=== PATIENT | female | born 1965 | race African-American/Black ===

== ENCOUNTER 2019-04-28 11:40 | Outpatient (CLI) | payer MEDICARE, MEDICAID ==
--- NOTE | 2019-04-28 14:13 | Ultrasound Report ---
Reason: HIGH VENOUS PRESSURES ON DIALYSIS Procedure Date: 04/28/2019 Accession Number: [id number] / [id number] Procedure: US - Duplex Upr Ext Arterial LT CPT Code: Final Report FULL RESULT: EXAM: LEFT ARM FISTULA ULTRASOUND. EXAM DATE: 04/28/2019 01:14 PM. CLINICAL HISTORY: High venous pressures on dialysis. COMPARISON: None. TECHNIQUE: Real-time sonographic vascular imaging was performed by the machine sneller, utilizing color-flow, Doppler flow, and spectral analysis. Multiple installation service representative static images were saved for review. 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 There is good palpable thrill at the arterial inflow side and cannulation zone aneurysma readily collapse with gentle pressure. Anatomically radiocephalic fistula with good arterial inflow with preserved spectral waveform in the presumed radial artery. Flow volume of the fistula is approximately 1500 mL/min, adequate. The fistula demonstrates low resistance arterialized waveforms on spectral Doppler throughout and is patent throughout with color Doppler. No thrombus is detected within the aneurysms. The venous outflow is via the cephalic vein which is patent to the level of the subclavian vein. Peak systolic velocity of 436 cm/s near the arterial anastomosis is noted with an inflow velocity of the radial artery of 178 cm/s. While this can be seen with stenosis, overall flow volume of the fistula is high, no indication for arterial side intervention. IMPRESSION: Excellent flow volumes with patent venous outflow to the subclavian vein. While the physical examination is not overtly suggestive of distal venous outflow stenosis, if venous pressures on dialysis remain high, recommend fistulogram potentially with intervention to exclude potential for central venous stenosis. [facility]
== END 2019-04-28 11:41 | disposition home or self-care (01) ==
LOC: DI 11:40
PROVIDERS: ATTEND Internal Medicine Nephrology
DX: T82.898A Other specified complication of vascular prosthetic devices, implants and grafts, initial encounter (principal)

== ENCOUNTER 2020-03-12 15:29 | Outpatient (CLI) | payer MEDICARE, MEDICAID | END 2020-03-12 15:30 | disposition home or self-care (01) | LOC: COV 15:29 | PROVIDERS: ATTEND Family Medicine | DX: R05 Cough (principal); Z20.828 Contact with and (suspected) exposure to other viral communicable diseases ==

== ENCOUNTER 2020-03-16 07:00 | Outpatient (CLI) | payer MEDICARE, MEDICAID | END 2020-03-16 23:59 | disposition home or self-care (01) | LOC: LAB.R 07:00 | PROVIDERS: ATTEND Physician Assistant Medical | DX: J40 Bronchitis, not specified as acute or chronic (principal); Z20.828 Contact with and (suspected) exposure to other viral communicable diseases ==

== ENCOUNTER 2020-03-16 10:03 | Outpatient (CLI) | payer MEDICARE, MEDICAID ==
--- NOTE | 2020-03-16 10:27 | XRAY Report ---
PROCEDURE: Chest 2 View X-Ray INDICATIONS: BRONCHITIS TECHNIQUE: 2 view(s) of the chest. COMPARISON: None. FINDINGS: Surgical changes and devices: None. Lungs and pleura: No pleural effusions or pneumothorax. Increased interstitial markings in both lung s. Mediastinum: Mediastinal contours are normal. Cardiomegaly. Bones and chest wall: No suspicious bony abnormalities. Soft tissues appear unremarkable. IMPRESSION: Cardiomegaly with mildly increased interstitial markings. This could represent cardiogen ic pulmonary edema although viral bronchitis would cause a similar appearance. Correlate with BNP and infection markers. Reviewed by: Aman Delacruz MD on 03/16/2020 9:25 AM [facility] Approved by: Aman Delacruz MD on 03/16/2020 9:25 AM [facility] Station ID: [id number]
== END 2020-03-16 23:59 | disposition home or self-care (01) ==
LOC: DI.N 10:03
PROVIDERS: ATTEND Physician Assistant Medical
DX: J40 Bronchitis, not specified as acute or chronic (principal)

== ENCOUNTER 2020-05-10 07:51 | Outpatient (CLI) | payer MEDICARE, MEDICAID ==
--- NOTE | 2020-05-10 10:15 | Ultrasound Report ---
PROCEDURE: Abdomen Limited INDICATIONS: RUQ ABD PAIN TECHNIQUE: Real-time focused scanning was performed of the abdomen, with image documentation. COMPARISON: None FINDINGS: The liver is enlarged measuring approximately 22 cm in greatest transverse dimension. There is increa sed conspicuity of the portal triads throughout the liver. Hepatic parenchymal echogenicity is normal . Parenchymal echotexture is mildly coarsened. No hepatic mass identified. No intrahepatic or extrahepatic biliary ductal dilatation. The common duct measures 3-5 mm at the por ta hepatis. Normally distended gallbladder with no pericholecystic fluid, wall thickening, sludge, or gallstone. Visualized proximal portions of the pancreas are normal. There are a few simple cysts in the right kidney, largest measuring 2 cm. Otherwise normal appearance of the right kidney. IMPRESSION: Mild hepatomegaly with coarsened hepatic echotexture and increased conspicuity of the portal triads. In the appropriate clinical setting these findings represent viral hepatitis or other diffuse hepatoc ellular process. Reviewed by: Aman Delacruz MD on 05/10/2020 9:14 AM [facility] Approved by: Aman Delacruz MD on 05/10/2020 9:14 AM [facility] Station ID: [id number]
== END 2020-05-10 07:52 | disposition home or self-care (01) ==
LOC: DI 07:51
PROVIDERS: ATTEND Nurse Practitioner Family
DX: R10.11 Right upper quadrant pain (principal); R16.0 Hepatomegaly, not elsewhere classified

== ENCOUNTER 2020-05-16 08:00 | Outpatient (CLI) | payer MEDICARE, MEDICAID ==
[2020-05-16 18:49] LABS: ALBUMIN 3.8 g/dL (3.2-5.5); BILIRUBIN,DIRECT 0.1 mg/dL (0.1-0.5); BILIRUBIN,TOTAL 0.8 mg/dL (0.2-1.0); TOTAL PROTEIN 6.8 g/dL (6.7-8.2)
[2020-05-17 12:38] LABS: HEPATITIS C ANTIBODY NON-REACTIVE (NON-REACTIVE)
[2020-05-17 12:40] LABS: HEPATITIS B SURFACE ANTIGEN NON-REACTIVE (NON-REACTIVE)
== END 2020-05-16 23:59 | disposition home or self-care (01) ==
LOC: LAB.WCP 08:00
PROVIDERS: ATTEND Nurse Practitioner Family
DX: R16.0 Hepatomegaly, not elsewhere classified (principal); R10.11 Right upper quadrant pain
CPT/HCPCS: 36415; 80076; 86317; 86704; 86709; 86803; 87340

== ENCOUNTER 2020-09-04 08:00 | Outpatient (CLI) | payer MEDICARE, MEDICAID ==
--- NOTE | 2020-09-04 18:57 | XRAY Report ---
PROCEDURE: Chest 2 View X-Ray INDICATIONS: SOB TECHNIQUE: 2 view(s) of the chest. COMPARISON: None. FINDINGS: Surgical changes and devices: None. Lungs and pleura: No pleural effusions or pneumothorax. Pulmonary venous congestion without reema pu lmonary edema. Mediastinum: Mediastinal contours are normal. Calcified right paratracheal lymph node suggests chron ic granulomatous disease. At least moderate cardiomegaly, as before. Bones and chest wall: No suspicious bony abnormalities. Soft tissues appear unremarkable. IMPRESSION: At least moderate cardiomegaly with pulmonary venous congestion. Reviewed by: Ramón Monroe MD on 09/04/2020 6:55 PM PDT Approved by: Ramón Monroe MD on 09/04/2020 6:55 PM PDT Station ID: [id number]
== END 2020-09-04 23:59 | disposition home or self-care (01) ==
LOC: DI.N 08:00
PROVIDERS: ATTEND Family Medicine
DX: I51.7 Cardiomegaly (principal); R09.89 Other specified symptoms and signs involving the circulatory and respiratory systems

== ENCOUNTER 2020-09-05 11:45 | Outpatient (CLI) | payer MEDICARE, MEDICAID ==
[2020-09-05 18:20] LABS: BASOPHILS # (AUTO) 0.1 10^3/uL (0.0-0.1); EOSINOPHILS # (AUTO) 0.1 10^3/uL (0.0-0.7); EOSINOPHILS % (AUTO) 1.8 %; HGB - HEMOGLOBIN 10.1 g/dL (12.0-16.0); LYMPHOCYTES % (AUTO) 20.9 %; MEAN CORPUSCULAR HEMOGLOBIN 27.8 pg (27.0-31.0); MEAN CORPUSCULAR HGB CONC 31.6 g/dL (32.0-36.0); MEAN CORPUSCULAR VOLUME 88.2 fL (81.0-99.0); MONOCYTES # (AUTO) 0.6 10^3/uL (0.0-1.0); MONOCYTES % (AUTO) 11.9 %; NEUTROPHILS # (AUTO) 3.1 10^3/uL (1.5-6.6); NEUTROPHILS % (AUTO) 63.8 %; PLT - PLATELET COUNT 159 10^3/uL (130-450); RED BLOOD COUNT 3.63 10^6/uL (4.20-5.40); WHITE BLOOD COUNT 4.9 x10^3/uL (4.8-10.8)
[2020-09-05 18:31] LABS: ALBUMIN 3.7 g/dL (3.2-5.5); ALBUMIN/GLOBULIN RATIO 1.3 (1.0-2.2); BILIRUBIN,TOTAL 0.8 mg/dL (0.2-1.0); CALCIUM 10.3 mg/dL (8.5-10.3); POTASSIUM 4.2 mmol/L (3.5-5.0); TOTAL PROTEIN 6.5 g/dL (6.7-8.2)
[2020-09-05 18:41] LABS: CREATININE 11.6 mg/dL (0.4-1.0)
== END 2020-09-05 11:46 | disposition home or self-care (01) ==
LOC: LAB.N 11:45
PROVIDERS: ATTEND Family Medicine
DX: R06.09 Other forms of dyspnea (principal); R06.02 Shortness of breath
CPT/HCPCS: 36415; 80053; 83880; 85025

== ENCOUNTER 2020-09-06 07:35 | Outpatient (CLI) | payer MEDICARE, MEDICAID ==
[2020-09-06] MEDS ORDERED: IOVERSOL 320 100 ML VIAL IVP ONE ×2 (07:38→07:40)
--- NOTE | 2020-09-06 10:27 | Ultrasound Report ---
PROCEDURE: Retroperitoneal INDICATIONS: RENAL LESION TECHNIQUE: Real-time scanning was performed of the retroperitoneal organs, with image documentation. COMPARISON: None. FINDINGS: Kidneys: Kidneys are normal in size. Right kidney measures 7.7 cm long; left kidney measures 8.4 cm long. Right renal cortical thickness is 0.65 cm; left renal cortical thickness is 0.74 cm. The right kidney has multiple cysts, the largest 2 measuring 2.3 x 2.0 x 1.5 cm in the inferior pole and 1.8 x 1.5 x 1.5 cm in the midpole. The left kidney has a solid vascular mass measuring 7.9 x 7.4 x 6.3 cm in the midpole. The left kidne y also has a cyst in the superior pole measuring 3.5 x 3.1 x 2.6 cm. IMPRESSION: 1. Solid mass in the left renal midpole highly suspicious for renal cell carcinoma. CT will be perfo rmed following this exam and will be dictated separately. 2. Multiple bilateral renal cysts. Reviewed by: Abhay Brady on 09/06/2020 10:25 AM PDT Approved by: Abhay Brady on 09/06/2020 10:25 AM PDT Station ID: [id number]
== END 2020-09-06 07:36 | disposition home or self-care (01) ==
LOC: DI 07:35
PROVIDERS: ATTEND Urology
DX: N28.89 Other specified disorders of kidney and ureter (principal); N28.1 Cyst of kidney, acquired

== ENCOUNTER 2020-09-06 09:22 | Emergency (ER) | payer MEDICARE, MEDICAID ==
--- NOTE | 2020-09-06 10:25 | ED Physician Documentation ---
PD HPI DYSPNEA - Stated complaint Stated Complaint: F/U BLOOD WORK - Chief complaint Chief Complaint: General - History obtained from History obtained from: Patient - History of Present Illness Timing - onset: How many weeks ago (1-2) Timing - onset during: Light activity Timing - duration: Weeks (1-2) Timing - details: Gradual onset, Waxing and waning (she has had some cough for couple weeks, dry/nonproductive. No wheezing. No noted leg swelling nor orthopnea. Gets dialysis M/W/F and she has talked with her director personal, and he plans to dialyze to lower dry weight starting tomorrow. Seen at [facility] yesterday to get labs done per Urologist order.) Inciting event(s): No: URI (no noted fevers, productive cough, edema.) Improved by: Rest Worsened by: Exertion, Coughing. No: Laying flat Associated symptoms: Cough, Bilateral edema. No: Fever, Hemoptysis, Wheezing, Palpitations Similar symptoms before: No diagnosis (some cough and dyspnea at times in the past. She states she had CHF mentioned in the past but no particular diagnosis.) Recently seen: Clinic ([facility] yesterday to get Chemistry tests done in prep for getting CT kidney done today (she states gets CT every 6 months to follow kidney tumor size). Also seen by provider at [facility] and added labs. Rx of Losartan for BP. Concern for heart failure. Lab results today and provider said to go to ER.), Other (was to get outpt CT kidney today but IV could not be started by DI/Anesthesia/nor ER nursing.) Review of Systems Constitutional: denies: Fever, Chills, Myalgias Nose: denies: Rhinorrhea / runny nose, Congestion Throat: denies: Sore throat Cardiac: denies: Chest pain / pressure, Palpitations, Pedal edema Respiratory: reports: Dyspnea, Cough. denies: Wheezing GI: denies: Abdominal Pain, Diarrhea, Bloody / black stool : reports: Other (she does not produce urine; dialysis patient with anuric renal failure.) Skin: denies: Rash, Lesions Musculoskeletal: denies: Extremity swelling Neurologic: denies: Generalized weakness, Near syncope PD PAST MEDICAL HISTORY - Past Medical History Cardiovascular: Hypertension Respiratory: None Neuro: None Endocrine/Autoimmune: Type 2 diabetes GI: None : Dialysis HEENT: None Psych: None - Present Medications Home Medications: Ambulatory Orders Medication Instructions Recorded Confirmed Acetaminophen [Aphen] 650 mg PO Q4HR PRN 09/06/20 09/06/20 Amlodipine Besylate [Norvasc] 10 mg PO DAILY 09/06/20 09/06/20 Ergocalciferol [Vitamin D2] 50,000 unit PO 09/06/20 Ferric Citrate [Auryxia] 630 mg PO TID 09/06/20 09/06/20 Losartan Potassium 25 mg PO DAILY 09/06/20 09/06/20 Non Formulary 1 tab PO DAILY 09/06/20 09/06/20 Sevelamer [Renagel] 2,400 mg PO TID 09/06/20 09/06/20 rOPINIRole [Requip] 0.25 mg PO BID 09/06/20 09/06/20 - Allergies Allergies/Adverse Reactions: Allergies Allergy/AdvReac Type Severity Reaction Status Date / Time No Known Drug Allergies Allergy Verified 09/06/20 09:31 PD ED PE NORMAL - Vitals Vital signs reviewed: Yes - General General: Alert and oriented X 3, No acute distress, Well developed/nourished - HEENT HEENT: Pharynx benign - Neck Neck: Supple, no meningeal sign, No adenopathy - Cardiac Cardiac: RRR, No murmur - Respiratory Respiratory: No respiratory distress, Clear bilaterally - Abdomen Abdomen: Soft, Non tender - Back Back: No CVA TTP - Derm Derm: Normal color, Warm and dry - Extremities Extremities: Normal ROM s pain, No edema, No calf tenderness / cord, Other (fistula dialysis noted left forearm with palpable thrill. ) - Neuro Neuro: Alert and oriented X 3, No motor deficit, Normal speech Results - Vitals Vitals: Vital Signs - 24 hr 09/06/20 09/06/20 09/06/20 09:28 11:31 13:00 Temperature 36.7 C 36.9 C 36.8 C Heart Rate 131 H 78 79 Respiratory 22 24 14 Rate Blood Pressure 154/111 H 152/94 H 154/93 H O2 Saturation 98 97 95 09/06/20 13:45 Temperature 36.8 C Heart Rate 75 Respiratory 16 Rate Blood Pressure 148/90 H O2 Saturation 99 Oxygen O2 Source Room air - EKG (time done) 09:44 Rate: Rate (enter#) (84) Rhythm: NSR [place]: Normal Intervals: Normal [place] QRS: Normal Ischemia: Normal ST segments. No: ST elevation c/w ischemia, ST depression - Labs Labs: Laboratory Tests 09/06/20 10:26 WBC 5.3 RBC 3.75 L Hgb 10.5 L Hct 32.8 L MCV 87.5 MCH 28.0 MCHC 32.0 RDW 14.6 Plt Count 136 MPV 11.2 H Neut # (Auto) 3.8 Lymph # (Auto) 0.9 L [place] # (Auto) 0.5 Eos # (Auto) 0.1 Baso # (Auto) 0.0 Absolute Nucleated RBC 0.00 Nucleated RBC % 0.0 - Rads (name of study) chest xray Radiology: Prelim report reviewed, See rad report (stable cardiomegaly; no infiltrates. ) ECHO Radiology: Prelim report reviewed (EF 40-45%, mild aortic stenosis. LV enlargement. Normal wall thickness. ), See rad report PD MEDICAL DECISION MAKING - ED course Complexity details: reviewed results (did not really need to repeat labs from just yesterday. ), re-evaluated patient (Clinically does not have edema, fine crackles, orthopnea. Does not clinically seem like CHF per se. Can assess with ECHO and CXR.), considered differential (labs from yesterday showed elevated Cr, which is of course expected being a dialysis patient, and elevated BNP, which also would be expected in dialysis, and no prior ones for comparison. Most useful to help clarify hear failure/dysfunction would be ECHO. Patient is here, so can see if can get it.), d/w patient Departure - Departure Disposition: 01 Home, Self Care Clinical Impression: Cough Dyspnea Qualifiers: Dyspnea type: shortness of breath Qualified Code(s): R06.02 - Shortness of breath Renal failure, chronic Qualifiers: Chronic kidney disease stage: unspecified stage Qualified Code(s): N18.9 - Chronic kidney disease, unspecified Condition: Stable Record reviewed to determine appropriate education?: Yes Follow-Up: ADEOLA BLANCO, MSN, ASSISTANT STORE MANAGER TRAINEE [Primary Care Provider] - Ian aHnna MD [Physician No Access] - Magali Walton MD [Physician No Access] - Comments: Continue your current medications and dialysis. As planned, your director personal will be getting a little more more fluid off of you during dialysis. Continue the blood pressure medicine just started. Otherwise your heart function is reasonably normal. I gave you a copy of your echo preliminary report. Discharge Date/Time: 09/06/20 13:45
[2020-09-06 10:37] LABS: BASOPHILS % (AUTO) 0.8 %; EOSINOPHILS # (AUTO) 0.1 10^3/uL (0.0-0.7); EOSINOPHILS % (AUTO) 1.5 %; HCT - HEMATOCRIT 32.8 % (37.0-47.0); HGB - HEMOGLOBIN 10.5 g/dL (12.0-16.0); LYMPHOCYTES # (AUTO) 0.9 10^3/uL (1.5-3.5); LYMPHOCYTES % (AUTO) 16.8 %; MEAN CORPUSCULAR VOLUME 87.5 fL (81.0-99.0); MEAN PLATELET VOLUME 11.2 fL (7.9-10.8); MONOCYTES # (AUTO) 0.5 10^3/uL (0.0-1.0); MONOCYTES % (AUTO) 9.1 %; NEUTROPHILS # (AUTO) 3.8 10^3/uL (1.5-6.6); NEUTROPHILS % (AUTO) 71.4 %; PLT - PLATELET COUNT 136 10^3/uL (130-450); RED BLOOD COUNT 3.75 10^6/uL (4.20-5.40); RED CELL DISTRIBUTION WIDTH 14.6 % (12.0-15.0); WHITE BLOOD COUNT 5.3 x10^3/uL (4.8-10.8)
--- OUTSIDE RECORDS SUMMARY | 2020-09-06 10:39 | EXTERNAL MEDICAL SUMMARY RPT | Continuity of Care Document ---
:1965 Demographics Phone Unavailable Preferred Language Unknown Marital Status Unknown Faith Affiliation Unknown Race Unknown Ethnic Group Unknown Author Organization [facility] Address [address] [place] [address] Phone Allergies Encounters Medications Problems Results
--- NOTE | 2020-09-06 10:41 | XRAY Report ---
PROCEDURE: Chest 1 View X-Ray INDICATIONS: Chest pain TECHNIQUE: One view of the chest was acquired. COMPARISON: 10/05/2019 FINDINGS: Surgical changes and devices: None. Lungs and pleura: No pleural effusions or pneumothorax. Lungs are clear. Mediastinum: Mediastinal contours appear normal. Cardiomegaly is unchanged compared to the prior mireya dy on 10/04/2020. A calcified right paratracheal lymph node and right lung granulomas is consistent wit h chronic granulomatous disease and is unchanged. Bones and chest wall: No suspicious bony lesions. Overlying soft tissues appear unremarkable. IMPRESSION: 1. Stable cardiomegaly. 2. A calcified right peritracheal lymph node is unchanged. Reviewed by: Abhay Brady on 09/06/2020 10:39 AM PDT Approved by: Abhay Brady on 09/06/2020 10:39 AM PDT Station ID: [id number]
[2020-09-06 14:04] VITALS: BP 148/90
== END 2020-09-06 13:45 | disposition home or self-care (01) ==
LOC: ED 09:22
DX: R05 Cough (principal); R06.02 Shortness of breath; E11.22 Type 2 diabetes mellitus with diabetic chronic kidney disease; I12.0 Hypertensive chronic kidney disease with stage 5 chronic kidney disease or end stage renal disease; N18.6 End stage renal disease; Z99.2 Dependence on renal dialysis; I08.0 Rheumatic disorders of both mitral and aortic valves; N28.89 Other specified disorders of kidney and ureter; N28.1 Cyst of kidney, acquired
CPT/HCPCS: 36415; 71045; 76770; 85025; 93005; 93306; 99284; Q9967; 80053; 83690; 84484

== ENCOUNTER 2020-09-25 08:26 | Outpatient (CLI) | payer MEDICARE, MEDICAID ==
[2020-09-25] MEDS ORDERED: IOVERSOL 320 100 ML VIAL IVP ONE ×2 (08:35→09:51)
--- NOTE | 2020-09-25 09:56 | CT Report ---
PROCEDURE: ABDOMEN W/WO INDICATIONS: RENAL LESION CONTRAST: IV CONTRAST: Optiray 320 ml: 140 PO CONTRAST: *NO PO CONTRAST TECHNIQUE: Noncontrast 5 mm thick sections acquired from the diaphragms to the symphysis. 5 mm coronal and sagi ttal reformats were then performed. For radiation dose reduction, the following was used: automated exposure control, adjustment of mA and/or kV according to patient size. COMPARISON: Renal ultrasound dated 09/06/2020 FINDINGS: Image quality: Excellent. Lung bases: Lung bases are clear. Cardiomegaly, with left atrial enlargement and reflux of contrast into the hepatic veins consistent with a degree of right heart failure. Kidneys: Both kidneys are small and shrunken, consistent with chronic renal failure. The solid mass s een on ultrasound corresponds to a relatively homogeneous lesion on CT which has some internal calcif ications. It measures approximately 7.9 x7.0 x 7.4 cm. There is mild enhancement with contrast. Nonco ntrast imaging Hounsfield measurement is 28. Arterial phase imaging is 35. Delayed imaging is 49 nazia [place]. It is exophytic off of a small, shrunken left kidney. Adrenal glands: No adrenal masses. Solid organs: Liver is mildly enlarged. No liver masses. No splenic masses. Both the spleen and liver contain calcified granulomata. No metastatic liver lesions are identified. Gallbladder contains slud ge and stones. Biliary system is non dilated. Pancreas enhances normally. Kidneys are normal in si ze and enhancement. No hydronephrosis or nephrolithiasis. Peritoneum and bowel: Unenhanced bowel loops are normal in caliber and wall thickness. No free flui d or air. Nodes and vessels: No retroperitoneal or mesenteric adenopathy by size criteria. Aorta and inferior vena cava are normal in size. Miscellaneous: No ventral hernias. Bones: No suspicious bony lesions. Bilateral sacroiliitis. No vertebral body compression fractures. IMPRESSION: 1. Bilateral small, shrunken kidneys. 2. There is a large solid exophytic mass off of the left kidney measuring 7.9 cm in maximum diameter. It most likely represents a renal cell carcinoma. 3. No evidence of metastatic disease. 4. Cardiomegaly with a probable degree of right heart failure. 5. Incidental note made of bilateral sacroiliitis. 6. Cholelithiasis. Reviewed by: Ramón Monroe MD on 09/25/2020 8:55 AM [facility] Approved by: Ramón Monroe MD on 09/25/2020 8:55 AM [facility] Station ID: [id number]
== END 2020-09-25 08:27 | disposition home or self-care (01) ==
LOC: DI 08:26
PROVIDERS: ATTEND Urology
DX: N26.1 Atrophy of kidney (terminal) (principal); N28.89 Other specified disorders of kidney and ureter; I51.7 Cardiomegaly; K80.20 Calculus of gallbladder without cholecystitis without obstruction
CPT/HCPCS: 74170; Q9967

== ENCOUNTER 2020-10-11 09:55 | Outpatient (CLI) | payer MEDICARE, MEDICAID | END 2020-10-11 09:56 | disposition critical access hospital (66) | LOC: EMS 09:55 | DX: R10.9 Unspecified abdominal pain (principal); R30.0 Dysuria | CPT/HCPCS: A0425; A0427 ==

== ENCOUNTER 2020-10-11 10:13 | Emergency (ER) | payer MEDICARE, MEDICAID ==
[2020-10-11] MEDS ORDERED: SODIUM CHLORIDE 0.9% 500 ML IV STA (10:23)
[2020-10-11] MEDS ORDERED: ONDANSETRON 4 MG/2 ML VIAL IVP STA (10:23)
[2020-10-11] MEDS ORDERED: HYDROmorphone 1 MG/ML CARPUJECT IVP STA ×2 (10:23→14:10)
--- NOTE | 2020-10-11 10:28 | ED Physician Documentation ---
PD HPI ABD PAIN - Stated complaint Stated Complaint: L SIDE PX - History obtained from History obtained from: Patient - History of Present Illness Timing - onset: Today Timing - duration: Minutes Timing - details: Abrupt onset, Still present Quality: Sharp, Pain Location: LUQ Radiation: Left flank Improved by: Meds Worsened by: Other (nothing) Associated symptoms: Nausea, Vomiting Similar symptoms before: Diagnosis (kidney stone) Recently seen: Other (dialysis yesterday) - Additional information Additional information: 54-year-old hemodialysis patient awoke this morning with acute left-sided abdominal pain consistent with what she has had previously with a kidney stone. She did have some vomiting of some phlegm. Pain is severe and she is brought to the hospital by ambulance. She received some pain medication in route with some mild improvement in her pain. She continues to have severe pain. She does not have modifying factors. She indicates she was not previously ill. She had dialysis yesterday. All went normal yesterday. 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 Cardiovascular: Vascular surgery - Present Medications Home Medications: Ambulatory Orders Medication Instructions Recorded Confirmed Acetaminophen [Aphen] 650 mg PO Q4HR PRN 09/06/20 09/06/20 Amlodipine Besylate [Norvasc] 10 mg PO DAILY 09/06/20 09/06/20 Ergocalciferol [Vitamin D2] 50,000 unit PO 09/06/20 Ferric Citrate [Auryxia] 630 mg PO TID 09/06/20 09/06/20 Losartan Potassium 25 mg PO DAILY 09/06/20 09/06/20 Non Formulary 1 tab PO DAILY 09/06/20 09/06/20 Sevelamer [Renagel] 2,400 mg PO TID 09/06/20 09/06/20 rOPINIRole [Requip] 0.25 mg PO BID 09/06/20 09/06/20 - Allergies Allergies/Adverse Reactions: Allergies Allergy/AdvReac Type Severity Reaction Status Date / Time No Known Drug Allergies Allergy Verified 09/06/20 09:31 - Social History Does the pt smoke?: No Smoking Status: Never smoker Does the pt drink ETOH?: No Does the pt have substance abuse?: No - Immunizations Immunizations are current?: Yes PD ED PE NORMAL - Vitals Vital signs reviewed: Yes (Tachycardic and hypertensive) - General General: Alert and oriented X 3, Well developed/nourished, Other (Appears to be acutely in pain with 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 and 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.) - HEENT HEENT: Atraumatic, PERRL, EOMI - Neck Neck: Supple, no meningeal sign, No bony TTP - Cardiac Cardiac: RRR, No murmur - Respiratory Respiratory: No respiratory distress, Clear bilaterally - Abdomen Abdomen: Normal bowel sounds, Soft, Non tender, Non distended, No organomegaly - Back Back: No CVA TTP, No spinal TTP - Derm Derm: Normal color, Warm and dry, No rash - Extremities Extremities: No deformity, No edema - Neuro Neuro: Alert and oriented X 3, head of marketing adometry 2-12 intact, No motor deficit, No sensory deficit, Normal speech Eye Opening: Spontaneous Motor: Obeys Commands Verbal: Oriented GCS Score: 15 - Psych Psych: Other (Mood and affect are painful.) Results - Vitals Vitals: Vital Signs - 24 hr 10/11/20 10/11/20 10/11/20 10:27 13:27 14:00 Temperature 36.5 C Heart Rate 106 H 91 92 Respiratory 20 16 14 Rate Blood Pressure 129/91 H 102/74 103/79 O2 Saturation 100 94 100 Oxygen O2 Source Room air - Labs Labs: Laboratory Tests 10/11/20 10/11/20 10:34 10:34 WBC 8.2 RBC 2.97 L Hgb 8.1 L Hct 25.5 L MCV 85.9 MCH 27.3 MCHC 31.8 L RDW 14.5 Plt Count 155 MPV 9.9 Neut # (Auto) 4.8 Lymph # (Auto) 2.5 [place] # (Auto) 0.8 Eos # (Auto) 0.1 Baso # (Auto) 0.1 Absolute Nucleated RBC 0.00 Nucleated RBC % 0.0 Sodium 133 L Potassium 3.2 L Chloride 94 L Carbon Dioxide 23 Anion Gap 16.0 H BUN 19 Creatinine 6.3 H Estimated GFR (MDRD) 8 L Glucose 145 H Calcium 9.8 Total Bilirubin 0.8 AST 21 ALT 16 Alkaline Phosphatase 53 Total Protein 5.9 L Albumin 3.5 Globulin 2.4 Albumin/Globulin Ratio 1.5 Lipase 22 - Rads (name of study) CT ab pel w/o Radiology: Prelim report reviewed CT ab pel with Radiology: Prelim report reviewed (Impression: 1. Large left renal hematoma with small focus of active hemorrhage as described above. Cholelithiasis. Small amount of ascites.), Discussed with rads, EMP read indepedently, See rad report PD MEDICAL DECISION MAKING - ED course Complexity details: reviewed results, re-evaluated patient, considered differential, d/w patient, d/w incident response consultant (JANINA Hastings here recommends transfer to [facility] for IR as there is a blush to the hematoma. ) ED course: 54 y/o dialysis patient with a recent diagnosis of a kidney mass awoke this morning with acute pain. Rescanning today shows a large retroperitoneal hematoma it was recommended we have a contrast scan done and this is positive for a blush to the hematoma and arrangements are made to transfer the patient acutely to [facility] to their interventional radiologist. Dr. James the emergency department physician at [facility] will accept the patient in transfer. She is administered Dilaudid here in the emerge department for pain control and she is very uncomfortable with this. She has dropped her hemoglobin about [address] ab pel: Impression: 1. Interval development of a large left hemiabdomen and pelvis mass completely obscuring previously identified left atrophic kidney with exophytic mass. Overall appearance is suggestive of a large hematoma. Source is not clear identified given lack of contrast. There are areas of punctate high density present which could represent areas of active hemorrhage or areas of calcification from superimposed structures. Hemorrhage from previous exophytic suspected renal cell carcinoma cannot be excluded. Contrast would be helpful for additional evaluation. Additionally, consultation with interventional ra diology or surgery is recommended. 2. Mild left pleural effusion, unchanged. Departure - Departure Disposition: 02 Transfer Acute Care Hosp Clinical Impression: Retroperitoneal bleeding Condition: Serious Discharge Date/Time: 10/11/20 14:54
[2020-10-11 10:39] LABS: BASOPHILS # (AUTO) 0.1 10^3/uL (0.0-0.1); BASOPHILS % (AUTO) 0.8 %; EOSINOPHILS # (AUTO) 0.1 10^3/uL (0.0-0.7); HCT - HEMATOCRIT 25.5 % (37.0-47.0); HGB - HEMOGLOBIN 8.1 g/dL (12.0-16.0); LYMPHOCYTES # (AUTO) 2.5 10^3/uL (1.5-3.5); LYMPHOCYTES % (AUTO) 29.7 %; MEAN CORPUSCULAR HEMOGLOBIN 27.3 pg (27.0-31.0); MEAN CORPUSCULAR HGB CONC 31.8 g/dL (32.0-36.0); MEAN CORPUSCULAR VOLUME 85.9 fL (81.0-99.0); MEAN PLATELET VOLUME 9.9 fL (7.9-10.8); MONOCYTES # (AUTO) 0.8 10^3/uL (0.0-1.0); MONOCYTES % (AUTO) 9.8 %; NEUTROPHILS # (AUTO) 4.8 10^3/uL (1.5-6.6); NEUTROPHILS % (AUTO) 58.1 %; PLT - PLATELET COUNT 155 10^3/uL (130-450); RED BLOOD COUNT 2.97 10^6/uL (4.20-5.40); RED CELL DISTRIBUTION WIDTH 14.5 % (12.0-15.0); WHITE BLOOD COUNT 8.2 x10^3/uL (4.8-10.8)
[2020-10-11 10:52] LABS: ALBUMIN 3.5 g/dL (3.2-5.5); ALBUMIN/GLOBULIN RATIO 1.5 (1.0-2.2); BILIRUBIN,TOTAL 0.8 mg/dL (0.2-1.0); CALCIUM 9.8 mg/dL (8.5-10.3); CREATININE 6.3 mg/dL (0.4-1.0); POTASSIUM 3.2 mmol/L (3.5-5.0); TOTAL PROTEIN 5.9 g/dL (6.7-8.2)
--- NOTE | 2020-10-11 11:50 | CT Report ---
PROCEDURE: Abdomen/Pelvis WO INDICATIONS: L flank pain, kidney stone suspected TECHNIQUE: Noncontrast 5 mm thick sections acquired from the diaphragms to the symphysis. 5 mm coronal and sagi ttal reformats were then performed. For radiation dose reduction, the following was used: automated exposure control, adjustment of mA and/or kV according to patient size. COMPARISON: Abdomen ultrasound 05/10/2020, CT abdomen 09/25/2020 FINDINGS: Image quality: Excellent. ABDOMEN: Lung bases: Mild left effusion is present. Heart size is enlarged with minimal effusion. Solid organs: Liver and spleen are normal in size. Liver and splenic calcifications are present sugg estive prior granulomatous disease. Gallbladder demonstrates a luminal stones without definitive wall thickening. Pancreas is normal in contours. No adrenal nodules. Kidneys are atrophic as noted on prior exam. The left kidney and the previously identified exophytic mass are poorly visualized second brandee to overlying heterogeneous mass measuring approximately 12.4 x 12.4 x 25.1 cm, Hounsfield units a pproximately 40. There is extensive stranding. It extends from the level of the spleen, into the left hemiabdomen and extending into the left lower pelvis. This is new compared to prior exam. There are several scattered areas of punctate and linear hyperdensity within the mass. Peritoneum and bowel: Unenhanced bowel loops demonstrate normal wall thickness and caliber. No free air. Dependent pelvic fluid is present. Nodes and vessels: No retroperitoneal or mesenteric adenopathy by size criteria. Aorta and inferior vena cava are normal in caliber. Miscellaneous: No ventral hernias. PELVIS: Genitourinary: Bladder wall thickness is normal. Miscellaneous: No inguinal hernias or adenopathy. Bones: No suspicious bony lesions. There is slight irregularity of the posterior left 12th rib, unch anged. This may represent an old injury. No vertebral body compression fractures. IMPRESSION: 1. Interval development of large left hemiabdomen and pelvic mass completely obscuring the previously identified left atrophic kidney with exophytic mass. Overall appearance is suggestive of a large hem atoma. Source is not clearly identified given lack of contrast. There are areas of punctate high dens ity present which could represent areas of active hemorrhage or areas of calcification from superimpo sed structures. Hemorrhage from previous exophytic suspected renal cell carcinoma cannot be excluded. Contrast would be helpful for additional evaluation. Additionally, consultation with interventional radiology or surgery is recommended. 2. Mild left pleural effusion, unchanged. The above findings were discussed with Dr. Herber White on 10/11/2020 at 10:20 AM. Reviewed by: Megan Farley MD on 10/11/2020 11:48 AM PDT Approved by: Megan Farley MD on 10/11/2020 11:48 AM PDT Station ID: [id number]
[2020-10-11] MEDS ORDERED: IOVERSOL 320 100 ML VIAL IVP ONE ×2 (12:01→16:51)
--- NOTE | 2020-10-11 13:24 | CT Report ---
PROCEDURE: ANGIO ABDOMEN/PELVIS W INDICATIONS: ? bleeding into hematoma CONTRAST: Intravenous iodinated contrast. TECHNIQUE: After the administration of intravenous contrast, 2 and 5 mm sections acquired from the diaphragm to the symphysis pubis during the arterial phase of intravenous contrast demonstration. 3-dimensional m aximum intensity projection (MIP) coronal and sagittal reformats, and/or 3-dimensional volume renderi ng reformatting was then performed. For radiation dose reduction, the following was used: automated exposure control, adjustment of mA and/or kV according to patient size. COMPARISON: Same-day noncontrast CT examination FINDINGS: Image quality: Excellent. Extravascular tissues: Lung bases are clear. Heart size is normal. Liver and spleen are normal in size and enhancement. Gallbladder is contracted and images multiple calculi within its lumen Biliar y system is non dilated. Pancreas enhances normally. No adrenal nodules. Severe renal atrophy is pr esent, bilaterally, as before. As before, there is a large left renal fossa hematoma which is increas ed slightly in size with a current maximal transverse diameter of roughly 15 cm ((previously measurin g 14.5 cm in the same plane). There is a small amount of gas within the posterior aspect of the hemat tr. Non-opacified bowel loops demonstrate normal wall thickness and caliber. No pneumoperitoneum. S mall amount of free fluid within the pelvis. Small amount of perihepatic ascites. No retroperitoneal or mesenteric adenopathy. No ventral hernias. No suspicious bony abnormalities. No vertebral body compression fractures. Abdominal aorta: Mild diffuse calcific stenosis. No aneurysm nor dissection. Mesenteric and renal arteries: Celiac and superior mesenteric arteries are patent. Inferior mesenter ic artery is patent. Mild calcific stenoses of the bilateral renal artery origins. There is a small f ocus of active extravasation from a left renal arterial branch (series 4 image 53). IMPRESSION: 1. Large left renal hematoma with small focus of active hemorrhage as described above. 2. Cholelithiasis. 3. Small amount of ascites. 4. Findings discussed with Dr. White on 10/11/2020 at 1315 hours. Reviewed by: Alejandro Hastings MD on 10/11/2020 1:23 PM PDT Approved by: Alejandro Hastings MD on 10/11/2020 1:23 PM PDT Station ID: [id number]
[2020-10-11 14:52] VITALS: BP 103/79
== END 2020-10-11 14:54 | disposition short-term general hospital (02) ==
LOC: EDUNIT# → ED 10:13
DX: K66.1 Hemoperitoneum (principal); R18.8 Other ascites; N28.89 Other specified disorders of kidney and ureter; J90 Pleural effusion, not elsewhere classified; K80.20 Calculus of gallbladder without cholecystitis without obstruction; E11.22 Type 2 diabetes mellitus with diabetic chronic kidney disease; I12.0 Hypertensive chronic kidney disease with stage 5 chronic kidney disease or end stage renal disease; N18.6 End stage renal disease; Z99.2 Dependence on renal dialysis
CPT/HCPCS: 36415; 74174; 74176; 80053; 83690; 85025; 96374; 96375; 96376; 99284; 99285; J1170; Q9967; 0202U; 86850; 86900; 86901

== ENCOUNTER 2020-12-11 08:41 | Outpatient (CLI) | payer MEDICARE, MEDICAID ==
--- NOTE | 2020-12-11 10:22 | CT Report ---
PROCEDURE: Abdomen/Pelvis WO INDICATIONS: RENAL LESION TECHNIQUE: Noncontrast 5 mm thick sections acquired from the diaphragms to the symphysis. 5 mm coronal and sagi ttal reformats were then performed. For radiation dose reduction, the following was used: automated exposure control, adjustment of mA and/or kV according to patient size. COMPARISON: CT abdomen with and without contrast dated 09/25/2020, CT angiogram of the abdomen and pe lvis dated 10/11/2020 FINDINGS: Image quality: Excellent. ABDOMEN: Lung bases: Lung bases are clear. Cardiomegaly, as before. Left kidney and surrounding structures: On the study of 09/25/2020, there was a markedly atrophic left kidney with an exophytic solid mass measuring 7.9 cm, highly suspicious for a renal cell carcinoma. On the study dated 09/11/2020, the left kidney and mass were completely obscured by a large acute retr operitoneal hemorrhage, likely representing spontaneous hemorrhage of the renal cell carcinoma. The c ontained left retroperitoneal hemorrhage is now more organized and is somewhat larger than on the mireya dy from October 11. It has a well-defined border. It previously measured approximately 24 x 14.5 x 14.7 cm. It currently measures approximately 25 x 16.9 x 16.5 cm. There is no acute extravasation noted. Other solid organs: Liver and spleen are normal in size. Numerous calcified granulomata in the splee n and liver. Gallbladder is somewhat contracted. Numerous calcified stones are noted in the gallblad kandace. Pancreas is normal in contours. No adrenal nodules. Right kidney is markedly atrophic. Peritoneum and bowel: Unenhanced bowel loops demonstrate normal wall thickness and caliber. No free fluid or air. Sigmoid diverticulosis. Nodes and vessels: No retroperitoneal or mesenteric adenopathy by size criteria. Aorta and inferior vena cava are normal in caliber. Miscellaneous: Small fat-containing periumbilical hernia. Mild anasarca. PELVIS: Genitourinary: Bladder wall thickness is normal. Miscellaneous: No inguinal hernias. Interval development of right inguinal adenopathy. The largest r ight inguinal lymph node is rounded, measuring 2.6 cm. Bones: No suspicious bony lesions. Bilateral sacroiliitis. No vertebral body compression fractures. IMPRESSION: 1. Slight interval increase in size of very large left retroperitoneal hematoma, now organized. This likely represents spontaneous rupture of a underlying renal cell carcinoma. Previously, there was a 7 .9 cm left renal mass. 2. Bilateral markedly atrophic kidneys. 3. Development of right inguinal adenopathy. These lymph nodes may represent metastatic disease. 4. Cholelithiasis. 5. Cardiomegaly. Reviewed by: Ramón Monroe MD on 12/11/2020 10:21 AM PDT Approved by: Ramón Monroe MD on 12/11/2020 10:21 AM PDT Station ID: [id number]
== END 2020-12-11 08:42 | disposition home or self-care (01) ==
LOC: DI 08:41
PROVIDERS: ATTEND Urology
DX: K66.1 Hemoperitoneum (principal); N26.1 Atrophy of kidney (terminal); K80.20 Calculus of gallbladder without cholecystitis without obstruction; I51.7 Cardiomegaly; R59.0 Localized enlarged lymph nodes

== ENCOUNTER 2021-01-25 12:32 | Outpatient (CLI) | payer MEDICARE, MEDICAID ==
--- NOTE | 2021-01-31 00:15 | XRAY Report ---
PROCEDURE: Chest 2 View X-Ray INDICATIONS: COUGH TECHNIQUE: 2 view(s) of the chest. Images became available for interpretation on 01/30/2021 COMPARISON: Chest x-ray 10/06/2020 FINDINGS: Surgical changes and devices: None. Lungs and pleura: No pleural effusions or pneumothorax. Lungs are clear. Mediastinum: Mediastinal contours are normal. Heart size is enlarged. Bones and chest wall: No suspicious bony abnormalities. Soft tissues appear unremarkable. IMPRESSION: No acute pulmonary process. Reviewed by: Megan Farley MD on 01/31/2021 12:14 AM PDT Approved by: Megan Farley MD on 01/31/2021 12:14 AM PDT Station ID: [id number]
== END 2021-01-25 12:33 | disposition home or self-care (01) ==
LOC: DI.N 12:32
PROVIDERS: ATTEND Nurse Practitioner
DX: R05.9 Cough, unspecified (principal)

== ENCOUNTER 2021-05-02 08:01 | Outpatient (CLI) | payer MEDICARE, MEDICAID ==
--- NOTE | 2021-04-30 12:51 | CT Report ---
PROCEDURE: Abdomen/Pelvis WO INDICATIONS: RENAL HEMORRHAGE LEFT, COMPLICATION OF FISTULA TECHNIQUE: Noncontrast 5 mm thick sections acquired from the diaphragms to the symphysis. 5 mm coronal and sagi ttal reformats were then performed. For radiation dose reduction, the following was used: automated exposure control, adjustment of mA and/or kV according to patient size. COMPARISON: CT abdomen pelvis 12/11/20, 10/11/20, 09/25/20. FINDINGS: Image quality: Excellent. ABDOMEN: Lung bases: There are patchy grounglass opacities in the lung bases. Heart size is markedly enlarged . Solid organs: There are multiple hepatic and splenic calcifications consistent with sequelae of old granulomatous disease. The spleen is normal in size. Pancreas is normal in contours. No adrenal nodu les. There is a large thick-walled heterogeneous fluid collection in the left perinephric space redemonstr ated. This demonstrates internal mild hyperattenuation consistent with a hematoma. The collection jessica sures up to 15.5 x 14.5 x 20.7 cm on series 3 image 42 and series 6 image 38. The findings are slight ly decreased in size from the prior study of 12/11/2020 on which it measured 16.9 x 16.5 x 26.2 cm. Th ere is adjacent fat stranding redemonstrated within the perinephric space. The collection again demon strates extensive mass effect on the atrophic left kidney. No hydronephrosis. A small atrophic right kidney is also redemonstrated without hydronephrosis. A right renal cyst is again noted. Peritoneum and bowel: Unenhanced bowel loops demonstrate normal wall thickness and caliber. A small amount of intraperitoneal free fluid is redemonstrated. No intraperitoneal free air. Nodes and vessels: No retroperitoneal or mesenteric adenopathy by size criteria. Aorta and inferior vena cava are normal in caliber. Miscellaneous: There is a small [place] ventral femoral hernia with partial herniation of adjacent small bowel loops. No associated bowel obstruction or strain relation. There is extensive subcutaneou s edema consistent with anasarca. PELVIS: Genitourinary: Bladder wall thickness is normal. Miscellaneous: No inguinal hernias or adenopathy. Bones: No suspicious bony lesions. No vertebral body compression fractures. IMPRESSION: 1. Large thick-walled heterogeneous collection in the left perinephric space consistent with a hemato ma demonstrates slight interval decrease in size compared to the prior study of 12/11/2020. 2. The collection again demonstrates marked mass effect on the atrophic left kidney. 3. Small amount of nonspecific intraperitoneal free fluid redemonstrated. 4. Diffuse subcutaneous changes edema compatible with anasarca. Reviewed by: Devonte Harrell MD on 04/30/2021 12:49 PM PST Approved by: Devonte Harrell MD on 04/30/2021 12:49 PM PST Station ID: [id number]
--- NOTE | 2021-05-02 14:04 | Ultrasound Report ---
PROCEDURE: Duplex Scan Hemodialysis Access INDICATIONS: RENAL HEMORRHAGE LEFT, TECHNIQUE: Color and pulse Doppler interrogation was performed of the upper extremity arteriovenous fistula, wit h image documentation. COMPARISON: None. FINDINGS: [place] vessel inflow: 66 cm/sec. Proximal to fistula anastomosis: 484 cm/sec. [place] vessel outflow: 197 cm/sec. Intraluminal thrombus: None. Fistula diameter: 2 aneurysmal components, largest measuring up to 6.7 cm. Volume of flow: 80 mL/sec. IMPRESSION: 1. 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 Reviewed by: Brent Cortez MD on 05/02/2021 2:02 PM [facility] Approved by: Brent Cortez MD on 05/02/2021 2:02 PM [facility] Station ID: [id number]
== END 2021-05-02 08:02 | disposition home or self-care (01) ==
LOC: DI 08:01
PROVIDERS: ATTEND Internal Medicine Nephrology
DX: T82.898A Other specified complication of vascular prosthetic devices, implants and grafts, initial encounter (principal)
CPT/HCPCS: 93990

== ENCOUNTER 2021-05-02 08:30 | Outpatient (CLI) | payer MEDICARE, MEDICAID ==
--- NOTE | 2021-05-02 14:04 | Ultrasound Report ---
REVISED: THIS REPORT WAS ORIGINALLY SIGNED ON 05/02/2021 @ 2:02 PM. THE REPORT MOVED TO THE CORRECT ACCOUNT ON 05/18/2021. PROCEDURE: Duplex Scan Hemodialysis Access INDICATIONS: RENAL HEMORRHAGE LEFT, TECHNIQUE: Color and pulse Doppler interrogation was performed of the upper extremity arteriovenous fistula, with image documentation. COMPARISON: None. FINDINGS: [place] vessel inflow: 66 cm/sec. Proximal to fistula anastomosis: 484 cm/sec. [place] vessel outflow: 197 cm/sec. Intraluminal thrombus: None. Fistula diameter: 2 aneurysmal components, largest measuring up to 6.7 cm. Volume of flow: 80 mL/sec. IMPRESSION: 1. 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 Reviewed by: Brent Cortez MD on 05/02/2021 2:02 PM PST Approved by: Brent Cortez MD on 05/02/2021 2:02 PM PST Station ID: [id number]
== END 2021-05-02 19:00 ==
LOC: DI 08:30
PROVIDERS: ATTEND Internal Medicine Nephrology
DX: T82.9XXA Unspecified complication of cardiac and vascular prosthetic device, implant and graft, initial encounter (principal)
CPT/HCPCS: 93990

== ENCOUNTER 2022-02-06 07:22 | Outpatient (CLI) | payer MEDICARE, MEDICAID ==
--- NOTE | 2022-02-06 14:39 | CT Report ---
PROCEDURE: ABDOMEN/PELVIS WO INDICATIONS: LEFT RENAL MASS TECHNIQUE: Noncontrast 5 mm thick sections acquired from the diaphragms to the symphysis. 5 mm coronal and sagi ttal reformats were then performed. For radiation dose reduction, the following was used: automated exposure control, adjustment of mA and/or kV according to patient size. COMPARISON: None. FINDINGS: Image quality: Excellent. ABDOMEN: Lung bases: Lung bases are clear. Marked four-chamber cardiomegaly, as before. Solid organs: Liver and spleen are normal in size. Calcifications in the liver and spleen are consis tent with chronic granulomatous disease. There appears to be a contracted gallbladder containing calc ified gallstones. Pancreas is normal in contours. No adrenal nodules. Atrophic left kidney with mass effect from adjacent chronic hematoma. Tiny, atrophic right kidney. Peritoneum and bowel: Unenhanced bowel loops demonstrate normal wall thickness and caliber. Mild asc ites, increased compared to the previous study. Nodes and vessels: No retroperitoneal or mesenteric adenopathy by size criteria. Aorta and inferior vena cava are normal in caliber. Miscellaneous: Small fat-containing periumbilical hernia. Anasarca, as before. Slight interval decrea se in size of a large left perinephric chronic hematoma. Previous AP dimension on prior image 41/3 wa s 16 cm. On current image 45/3 it measures 14.9 cm. PELVIS: Genitourinary: Bladder is completely decompressed. Miscellaneous: No inguinal hernias or adenopathy. Bones: No suspicious bony lesions. No vertebral body compression fractures. IMPRESSION: 1. Slight interval decrease in the size of a large thick-walled collection in the left perirenal spac e, consistent with slight interval decrease in the size of a chronic hematoma. 2. Small, atrophic bilateral kidneys. 3. Interval increase in ascites, mild. 4. Diffuse anasarca. 5. Marked cardiomegaly. 6. There appears to be a contracted gallbladder containing gallstones. Reviewed by: Ramón Monroe MD on 02/06/2022 2:38 PM PST Approved by: Ramón Monroe MD on 02/06/2022 2:38 PM PST Station ID: [id number]
== END 2022-02-06 07:23 | disposition home or self-care (01) ==
LOC: DI 07:22
PROVIDERS: ATTEND Nurse Practitioner
DX: N28.89 Other specified disorders of kidney and ureter (principal); N26.1 Atrophy of kidney (terminal); R18.8 Other ascites; I51.7 Cardiomegaly

== ENCOUNTER 2022-03-06 07:57 | Outpatient (CLI) | payer MEDICARE, MEDICAID | END 2022-03-06 07:58 | disposition home or self-care (01) | LOC: DI 07:57 | PROVIDERS: ATTEND Nurse Practitioner | DX: I08.3 Combined rheumatic disorders of mitral, aortic and tricuspid valves (principal); I87.8 Other specified disorders of veins; R93.1 Abnormal findings on diagnostic imaging of heart and coronary circulation; I77.810 Thoracic aortic ectasia | CPT/HCPCS: 93306 ==

== ENCOUNTER 2022-05-16 14:49 | Outpatient (CLI) | payer MEDICARE, MEDICAID | END 2022-05-16 14:50 | disposition home or self-care (01) | LOC: MAC.MOP 14:49 | PROVIDERS: ATTEND Nurse Practitioner | DX: R00.2 Palpitations (principal) | CPT/HCPCS: 93246 ==

== ENCOUNTER 2022-05-27 10:16 | Outpatient (CLI) | payer MEDICARE, MEDICAID ==
--- NOTE | 2022-06-03 10:00 | Mammography Report ---
BILATERAL DIGITAL SCREENING MAMMOGRAM 3D/2D: 05/27/2022 CLINICAL: Routine screening. No prior mammograms exams were available for comparison. CT abdomen and pelvis without contrast 12/2021. Both breasts are heterogeneously dense, which may obscure small masses (category c / 51-75% glandular tissue). There are benign vascular calcifications in both breasts. Asymmetric left breast skin thickening. No significant masses, calcifications, or other findings are seen in either breast. IMPRESSION: INCOMPLETE: NEEDS ADDITIONAL IMAGING EVALUATION Asymmetric left breast skin thickening. This could be due to edema. On prior CT Abdomen and pelvis th ere is cardiomegaly. However, inflammatory breast cancer could have a similar appearance. Recommend clinical correlation. Diagnostic mammogram and ultrasound could also be helpful. Based on the Tyrer Cuzick model (a risk assessment model) the patients lifetime risk is 8.8% and her 10 year risk is 2.7%. According to the ACR, ACS, and NCCN guidelines, an annual breast MRI exam jian g with mammogram is recommended if the patients lifetime risk is 20% or greater. This exam was interpreted at Station ID: [id number]. NOTE: For mammograms, a report in lay terms will be sent to the patient. Approximately 15% of breast malignancies will not be visualized mammographically. In the management of a palpable breast mass, a negative mammogram must not discourage biopsy of a clinically suspicious lesion. Electronically Signed By: Sudhakar Lockett M.D. slc/:06/02/2022 20:51:40 ACR BI-RADS Category 0: Incomplete 3340F PARENCHYMAL PATTERN: (D) - The breast(s) demonstrate(s) heterogeneously dense fibroglandular parenchy ma. BI-RADS CATEGORY: (0) - 0 Mammo and [place] [id number] Immediate follow-up LATERALITY: (B)
== END 2022-05-27 10:17 | disposition home or self-care (01) ==
LOC: DI.N 10:16
DX: Z12.31 Encounter for screening mammogram for malignant neoplasm of breast (principal); R23.4 Changes in skin texture

== ENCOUNTER 2022-06-17 10:30 | Outpatient (CLI) | payer MEDICARE, MEDICAID | END 2022-06-17 23:59 | disposition home or self-care (01) | LOC: MAC.INF 10:30 | PROVIDERS: ATTEND Nurse Practitioner | DX: R00.2 Palpitations (principal); I44.0 Atrioventricular block, first degree; I47.1 Supraventricular tachycardia; I49.1 Atrial premature depolarization; I49.3 Ventricular premature depolarization | CPT/HCPCS: 93248 ==

== ENCOUNTER 2022-08-11 19:57 | Emergency (ER) | payer MEDICARE, MEDICAID ==
[2022-08-11 20:42] VITALS: BP 114/75
[2022-08-11 22:10] LABS: B. PARAPERTUSSIS- RESP PCR PAN NOT DETECTED; B. PERTUSSIS- RESP PCR PANEL NOT DETECTED; C. PNEUMONIAE- RESP PCR PANEL NOT DETECTED; CORONAVIRUS 229E-RESP PCR NOT DETECTED; CORONAVIRUS HKU1-RESP PCR NOT DETECTED; CORONAVIRUS NL63-RESP PCR NOT DETECTED; CORONAVIRUS OC43-RESP PCR NOT DETECTED; HUMAN METAPNEUMOVIRUS NOT DETECTED; INFLUENZA A- RESP PCR PANEL NOT DETECTED; INFLUENZA B - RESP PCR PANEL NOT DETECTED; M. PNEUMONIAE- RESP PCR PANEL NOT DETECTED; PARAINFLUENZA VIRUS 1 NOT DETECTED; PARAINFLUENZA VIRUS 2 NOT DETECTED; PARAINFLUENZA VIRUS 3 DETECTED; PARAINFLUENZA VIRUS 4 NOT DETECTED; RHINOVIRUS/ENTEROVIRUS NOT DETECTED; RSV- RESP PCR PANEL NOT DETECTED; SARS-CoV-2 -RESP PCR PANEL NOT DETECTED
--- NOTE | 2022-08-11 22:44 | XRAY Report ---
PROCEDURE: Chest 1 View X-Ray INDICATIONS: dyspnea; orthopnea; esrd on dialysis TECHNIQUE: One view of the chest was acquired. COMPARISON: Chest x-ray 01/25/2021. FINDINGS: Surgical changes and devices: None. Lungs and pleura: No pleural effusions or pneumothorax. No acute airspace opacities. Mediastinum: Mediastinal contours appear unchanged. Heart size is enlarged. Bones and chest wall: No suspicious bony lesions. Overlying soft tissues appear unremarkable. IMPRESSION: No acute cardiopulmonary disease. Reviewed by: Devonte Sheriff MD on 08/11/2022 10:42 PM PDT Approved by: Devonte Sheriff MD on 08/11/2022 10:42 PM PDT Station ID: [id number]
== END 2022-08-11 22:56 | disposition left against medical advice (07) ==
LOC: ED 19:57
DX: Z53.21 Procedure and treatment not carried out due to patient leaving prior to being seen by health care provider (principal)
CPT/HCPCS: 87633

== ENCOUNTER 2022-08-19 16:26 | Outpatient (CLI) | payer MEDICARE, MEDICAID ==
[2022-08-19 17:01] LABS: CREATININE 7.1 mg/dL (0.4-1.0)
[2022-08-19] MEDS ORDERED: DIATRIZOATE MEGLU/DIATRIZO SOD 30 ML BOTTLE PO ONE (18:25)
--- NOTE | 2022-08-20 10:35 | CT Report ---
PROCEDURE: CHEST WO INDICATIONS: LUE LYMPHADENOPATHY/ ABD ANASARCA TECHNIQUE: Noncontrast 1mm axial images were acquired from the pulmonary apices to the posterior costophrenic an gles. Axial 5 mm soft tissue kernel reconstructions were performed as well as 8 mm axial MIP and cor onal and sagittal 5 mm reformations. For radiation dose reduction, the following was used: automate d exposure control, adjustment of mA and/or kV according to patient size. COMPARISON: None FINDINGS: Image quality: Mild motion artifact Lungs and pleura:Linear opacity in the right lower lobe, probably scarring/atelectasis. Other areas o f suspected scarring and atelectasis also present. No dense airspace disease or pleural effusion. A micronodule is seen adjacent to the right-sided fissure (3/114). Mediastinum, heart, and esophagus: Small hiatal hernia. Cardiomegaly. Coronary disease. Annular calci fications. Large calcified lymph node adjacent to the distal trachea. Dilated main pulmonary artery s uggestive of chronically high right heart pressures. Chest wall and thyroid: 2.4 cm left thyroid nodule. Diffuse anasarca of the chest wall. Left axillary mildly enlarged lymph nodes, for example 05/21 measuring 1.8 x 2.1 cm. Upper abdomen: Separately dictated Bones: Degenerative changes. No acute or suspicious osseous finding. IMPRESSION: Limited noncontrast CT with mild motion artifact. Left axillary mildly enlarged lymph nodes, amenable to percutaneous sampling if necessary. Large cardiomegaly. Diffuse chest wall edema. 2.4 cm left thyroid nodule with small calcifications, consider correlation with ultrasound. Suspected sequela of granulomatous disease. Reviewed by: Efren Yoo MD on 08/20/2022 10:34 AM PDT Approved by: Efren Yoo MD on 08/20/2022 10:34 AM PDT Station ID: [id number]
--- NOTE | 2022-08-20 10:41 | CT Report ---
PROCEDURE: ABDOMEN/PELVIS WO INDICATIONS: LUE LYMPHADENOPATHY/ ABD ANASARCA TECHNIQUE: Noncontrast 5 mm thick sections acquired from the diaphragms to the symphysis. 5 mm coronal and sagi ttal reformats were then performed. For radiation dose reduction, the following was used: automated exposure control, adjustment of mA and/or kV according to patient size. COMPARISON: 02/06/2022 FINDINGS: Image quality: Mild motion artifact. There is also metallic artifact in the upper abdomen. Lower chest: Separately dictated Solid organs: Liver is unremarkable. There are small granulomas. Cholelithiasis. No pathologic dilation of the biliary tree or pancreatic duct. Splenic granulomas. No obvious adrenal nodule, which are not well seen. Atrophic kidneys. Large fluid collection again se en in the left suspected capsular chronic hematoma. There are wall calcifications. This measures abou t 13.8 x 12.3 cm, previously 14.6 x 12.3 cm. Vessels and lymph nodes: There are prominent intra-abdominal or intrapelvic lymph nodes, difficult to evaluate in the absence of contrast and presence of artifact. There are also borderline enlarged ing uinal nodes, for example on the right () measuring 2.1 x 1.6 cm. This is slightly smaller than pr ior imaging. Bowel and peritoneum: Mild to moderate amount of ascites. No evidence of small bowel obstruction. Body wall: Diffuse anasarca. Pelvis: Bladder is difficult to visualize, underdistended. Reproductive organs are difficult to visua lize. No gross abnormality. Bones: No acute or suspicious osseous finding. IMPRESSION: Limited, artifact degraded noncontrast abdominal CT. A borderline enlarged right inguinal lymph node is slightly smaller than prior imaging. Stable chronic fluid collection in the left retroperitoneum adjacent to the left kidney. The kidneys are atrophic. Partially seen cardiomegaly. Mild to moderate ascites and diffuse body wall anasarca. Sequelae of granulomatous exposure. Other incidental and stable findings above. Chest findings are separately dictated. Reviewed by: Efren Yoo MD on 08/20/2022 10:39 AM PDT Approved by: Efren Yoo MD on 08/20/2022 10:39 AM PDT Station ID: [id number]
== END 2022-08-19 16:27 | disposition home or self-care (01) ==
LOC: LAB 16:26
PROVIDERS: ATTEND Nurse Practitioner
DX: R59.0 Localized enlarged lymph nodes (principal); N28.89 Other specified disorders of kidney and ureter; N26.1 Atrophy of kidney (terminal); I51.7 Cardiomegaly; R18.8 Other ascites; E04.1 Nontoxic single thyroid nodule
CPT/HCPCS: 36415; 82565

== ENCOUNTER 2022-09-10 13:03 | Outpatient (CLI) | payer MEDICARE, MEDICAID ==
--- NOTE | 2022-09-11 12:17 | Mammography Report ---
UNILATERAL LEFT DIGITAL DIAGNOSTIC MAMMOGRAM 3D/2D: 09/10/2022 CLINICAL: Additional evaluation of left breast requested from prior study. Comparison is made to exam dated: 05/27/2022 mammogram - [facility]. The left breast is heterogeneously dense, which may obscure small masses (category c / 51-75% glandul ar tissue). There is diffuse skin thickening and trabecular thickening in the left breast, which does not appear significantly changed when compared to the exam from 05/27/2022. Dilated superficial varicose veins ar e noted superiorly. No significant masses, calcifications, or other findings are seen in the breast. IMPRESSION: NEGATIVE Stable diffuse left breast skin thickening and trabecular thickening, which is most likely related to a non-breast process. No mass is seen. Recommend clinical correlation. There is no mammographic evid ence of malignancy. Return to annual mammogram screening schedule is recommended. Based on the Tyrer Cuzick model (a risk assessment model) the patients lifetime risk is 8.8% and her 10 year risk is 2.7%. According to the ACR, ACS, and NCCN guidelines, an annual breast MRI exam jian g with mammogram is recommended if the patients lifetime risk is 20% or greater. This exam was interpreted at Station ID: [id number]. NOTE: For mammograms, a report in lay terms will be sent to the patient. Approximately 15% of breast malignancies will not be visualized mammographically. In the management of a palpable breast mass, a negative mammogram must not discourage biopsy of a clinically suspicious lesion. Electronically Signed By: Barron Nicole M.D. ar/:09/10/2022 13:44:18 ACR BI-RADS Category 1: Negative 3341F PARENCHYMAL PATTERN: (D) - The breast(s) demonstrate(s) heterogeneously dense fibroglandular parenchy ma. BI-RADS CATEGORY: (1) - 1 Mammogram [id number] return to screening LATERALITY: (B)
== END 2022-09-10 13:04 | disposition home or self-care (01) ==
LOC: DI 13:03
PROVIDERS: ATTEND Nurse Practitioner
DX: R92.8 Other abnormal and inconclusive findings on diagnostic imaging of breast (principal)

== ENCOUNTER 2022-09-23 07:57 | Outpatient (CLI) | payer MEDICARE, MEDICAID ==
--- NOTE | 2022-09-23 11:17 | Ultrasound Report ---
PROCEDURE: Axilla INDICATIONS: LUE LYMPHADENOPATHY TECHNIQUE: Real-time focused scanning was performed of the left axilla, with image documentation. COMPARISON: CT dated 08/19/2022 FINDINGS: There is a benign-appearing left axillary lymph node with intact fatty hilum. IMPRESSION: 1. Benign-appearing left axillary lymph node, consistent with reactive adenopathy. No need for biopsy . Follow-up ultrasound examination in 3 months is recommended to ensure resolution. Reviewed by: Alejandro Hastings MD on 09/23/2022 11:15 AM PDT Approved by: Alejandro Hastings MD on 09/23/2022 11:15 AM PDT Station ID: [id number]
== END 2022-09-23 07:58 | disposition home or self-care (01) ==
LOC: DI 07:57
PROVIDERS: ATTEND Nurse Practitioner
DX: R59.0 Localized enlarged lymph nodes (principal)

== ENCOUNTER 2022-09-23 07:58 | Outpatient (CLI) | payer MEDICARE, MEDICAID ==
--- NOTE | 2022-09-23 16:44 | Ultrasound Report ---
PROCEDURE: Head or Neck Soft Tissue INDICATIONS: THYROID NODULE SEEN ON CT TECHNIQUE: Real-time scanning was performed of the thyroid gland, with image documentation. COMPARISON: None FINDINGS: Right: Thyroid lobe measures 5.1 x 2.2 x 1.9 cm, and demonstrates inferior nodules Left: Thyroid lobe measures 5.8 x 3.1 x 3.0 cm and demonstrates a nodule centrally Isthmus: 5 mm thick. Nodule number: One Location: Right superior thyroid Size: 0.6 x 0.5 x 0.4 cm. Composition: Solid. Echogenicity: Hyperechoic. Shape: wider than tall. Margins: Irregular. Echogenic foci: Macrocalcifications present. Total points: 4 ACR TI-RADS category: 4 Recommendations: No follow-up necessary based on size. Nodule number: Two Location: Right mid/lower thyroid Size: 0.7 x 0.4 x 0.7 cm. Composition: Predominantly cystic. Echogenicity: Hypoechoic. Shape: wider than tall. Margins: Smooth (0 points). Echogenic foci: None (0 points). Total points: 2 ACR TI-RADS category: 2 Recommendations: No follow-up necessary.. Nodule number: Three Location: Right lower thyroid Size: 0.5 x 0.6 x 0.5 cm. Composition: Predominantly cystic. Echogenicity: Hypoechoic. Shape: wider than tall. Margins: Smooth (0 points). Echogenic foci: None (0 points). Total points: 2 ACR TI-RADS category: 2 Recommendations: No follow-up necessary. Nodule number: Four Location: Left mid thyroid Size: 3.2 x 3.5 x 3.2 cm. Composition: Predominantly solid. Echogenicity: Isoechoic and hypoechoic. Shape: wider than tall. Margins: Smooth (0 points). Echogenic foci: Multiple macrocalcifications. Total points: 5 ACR TI-RADS category: 4 Recommendations: Fine needle aspiration. IMPRESSION: 1. Bilateral thyroid nodules with recommendations as above. Reviewed by: Alejandro Hastings MD on 09/23/2022 4:43 PM PDT Approved by: Alejandro Hastings MD on 09/23/2022 4:43 PM PDT Station ID: [id number]
== END 2022-09-23 07:59 | disposition home or self-care (01) ==
LOC: DI 07:58
PROVIDERS: ATTEND Nurse Practitioner
DX: E04.2 Nontoxic multinodular goiter (principal); R59.0 Localized enlarged lymph nodes

== ENCOUNTER 2022-10-22 13:57 | Outpatient (CLI) | payer MEDICARE, MEDICAID ==
[2022-10-22] MEDS ORDERED: LIDOCAINE-MPF 1% 5 ML VIAL ONE (14:15)
--- NOTE | 2022-10-22 15:28 | Ultrasound Report ---
PROCEDURE: FNA Bx w/US Gdn 1st Les INDICATIONS: THYROID NODULE TECHNIQUE: The indications, alternatives, benefits, risks, and complications of the procedure were explained to the patient. Written informed consent was obtained and placed in the chart. The area of interest wa s examined sonographically and a site was chosen for ultrasound guided percutaneous sampling. The sk in was prepared and draped in the usual fashion, and anesthetized with 1% lidocaine infiltrated from the skin down to the lesion. Multiple passes were then performed, with contents [facility]. A bandage was applied to the area of access at completion of t he study. COMPARISON: Ultrasound thyroid, 09/23/2022. FINDINGS: Location(s) of lesion(s) sampled: Left thyroid nodule [place]: 25 gauge hypodermic needles. Number of passes: 6 Medications: 1% lidocaine for local anaesthesia. Complications: None. IMPRESSION: Successful ultrasound-guided fine needle aspiration of left thyroid nodule, with cytology results rafael hebert. Reviewed by: Shahbaz Du MD on 10/22/2022 3:26 PM PDT Approved by: Shahbaz Du MD on 10/22/2022 3:26 PM PDT Station ID: [id number]
[2022-10-22] MEDS ORDERED: LIDOCAINE-MPF 1% 5 ML VIAL TD ONE (16:13)
== END 2022-10-22 13:58 | disposition home or self-care (01) ==
LOC: DI 13:57
PROVIDERS: ATTEND Nurse Practitioner
DX: D44.0 Neoplasm of uncertain behavior of thyroid gland (principal)
CPT/HCPCS: 10005

== ENCOUNTER 2023-01-22 15:28 | Emergency (ER) | payer MEDICARE, MEDICAID ==
--- NOTE | 2023-01-22 16:29 | ED Physician Documentation ---
History of Present Illness - Stated complaint Stated Complaint: LEGS BURNING SENSATION - Chief complaint Chief Complaint: Ext Problem - History obtained from History obtained from: Patient - Additonal information Additional information: 57-year-old female history of ESRD on Thursday dialysis presents for bilateral lower extremity swelling for the last 2 to 3 weeks. Patient states that this is gradually worsened and she has noticed a stinging and burning sensation in her lower extremities. She mentioned this to her dialysis nurse who told the patient to be evaluated for possible cellulitis. Patient missed her dialysis session yesterday, but is scheduled to go to dialysis tomorrow. Denies fevers, other complaints. She no longer makes urine. Review of Systems Constitutional: denies: Fever, Chills GI: denies: Abdominal Pain, Nausea, Vomiting : denies: Dysuria, Frequency, Hesitancy Skin: denies: Rash, Lesions, Abrasion (s) Musculoskeletal: reports: Extremity pain, Extremity swelling. 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 Cardiovascular: Vascular surgery - Present Medications Home Medications: Ambulatory Orders Medication Instructions Recorded Confirmed Acetaminophen [Aphen] 650 mg PO Q4HR PRN 09/06/20 09/06/20 Amlodipine Besylate [Norvasc] 10 mg PO DAILY 09/06/20 09/06/20 Ergocalciferol [Vitamin D2] 50,000 unit PO 09/06/20 Ferric Citrate [Auryxia] 630 mg PO TID 09/06/20 09/06/20 Losartan Potassium 25 mg PO DAILY 09/06/20 09/06/20 Non Formulary 1 tab PO DAILY 09/06/20 09/06/20 Sevelamer [Renagel] 2,400 mg PO TID 09/06/20 09/06/20 rOPINIRole [Requip] 0.25 mg PO BID 09/06/20 09/06/20 Gabapentin [Neurontin] 300 mg PO BID #60 cap 01/22/23 - Allergies Allergies/Adverse Reactions: Allergies Allergy/AdvReac Type Severity Reaction Status Date / Time No Known Drug Allergies Allergy Verified 01/22/23 15:42 - Social History Does the pt smoke?: No Smoking Status: Never smoker Does the pt drink ETOH?: No Does the pt have substance abuse?: No - Immunizations Immunizations are current?: Yes PD ED PE NORMAL - Vitals Vital signs reviewed: Yes - General General: Alert and oriented X 3, No acute distress, Well developed/nourished - HEENT HEENT: Atraumatic - Neck Neck: Supple, no meningeal sign - Cardiac Cardiac: RRR, Strong equal pulses - Respiratory Respiratory: No respiratory distress, Clear bilaterally - Abdomen Abdomen: Soft, Non tender, Non distended - Derm Derm: Normal color, Warm and dry, No rash - Extremities Extremities: No deformity, Other (4+ pitting edema to thighs. 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, No motor deficit, Normal speech - Psych Psych: Normal mood, Normal affect Results - Vitals Vitals: Vital Signs - 24 hr 01/22/23 01/22/23 01/22/23 15:37 17:42 20:24 Temperature 36.7 C Heart Rate 86 87 95 Respiratory 15 18 16 Rate Blood Pressure 115/61 125/75 109/71 O2 Saturation 98 99 100 Oxygen O2 Source Room air - Labs Labs: Laboratory Tests 01/22/23 01/22/23 01/22/23 16:40 16:40 16:40 WBC 4.7 L RBC 3.69 L Hgb 10.1 L Hct 31.9 L MCV 86.4 MCH 27.4 MCHC 31.7 L RDW 16.9 H Plt Count 150 MPV 9.8 Neut # (Auto) 3.2 Lymph # (Auto) 0.7 L [place] # (Auto) 0.7 Eos # (Auto) 0.1 Baso # (Auto) 0.1 Absolute Nucleated RBC 0.00 Nucleated RBC % 0.0 PT 15.1 H INR 1.4 H Sodium 136 Potassium 4.0 Chloride 97 L Carbon Dioxide 29 Anion Gap 10.0 BUN 45 H Creatinine 8.5 H* Estimated GFR (MDRD) 6 L Glucose 70 L Calcium 8.8 Total Bilirubin 1.0 AST 14 ALT 4 L Alkaline Phosphatase 89 Total Protein 7.5 Albumin 3.9 Globulin 3.6 Albumin/Globulin Ratio 1.1 PD Medical Decision Making - ED course Complexity details: reviewed results, re-evaluated patient, considered differential, d/w patient ED course: Progressive bilateral lower extremity swelling in dialysis patient, now with stinging pain. Patient states that she was told by dialysis nurses that she should be evaluated for cellulitis, however due to the chronicity and description of the patient's symptoms as well as lack of warmth or entry point of infection this does not appear to be cellulitic at this time. I suspect that patient has component of volume overload and fluid retention in her lower extremities. She already has existing lymphedema in her left upper extremity. Will order ultrasound to assess for DVT. Laboratory work is reviewed. Patient has elevated creatinine, this is not surprising as she is a dialysis patient. There is no DVT on ultrasound. Patient informed of all lab and imaging findings, I recommended that she discuss the possibility of additional fluid removal with her insights manager. We will trial gabapentin for pain. Patient expressed understanding the plan is in agreement at this time. All questions answered at the time of discharge. Departure - Departure Disposition: 01 Home, Self Care Clinical Impression: Swelling of both lower extremities Condition: Stable Instructions: ED Edema Legs Bilateral Prescriptions: Gabapentin [Neurontin] 300 mg PO BID #60 cap Forms: PCP List Discharge Date/Time: 01/22/23 20:24
[2023-01-22 16:43] LABS: BASOPHILS # (AUTO) 0.1 10^3/uL (0.0-0.1); BASOPHILS % (AUTO) 1.1 %; EOSINOPHILS # (AUTO) 0.1 10^3/uL (0.0-0.7); EOSINOPHILS % (AUTO) 2.1 %; HCT - HEMATOCRIT 31.9 % (37.0-47.0); HGB - HEMOGLOBIN 10.1 g/dL (12.0-16.0); LYMPHOCYTES # (AUTO) 0.7 10^3/uL (1.5-3.5); LYMPHOCYTES % (AUTO) 14.1 %; MEAN CORPUSCULAR HEMOGLOBIN 27.4 pg (27.0-31.0); MEAN CORPUSCULAR HGB CONC 31.7 g/dL (32.0-36.0); MEAN CORPUSCULAR VOLUME 86.4 fL (81.0-99.0); MEAN PLATELET VOLUME 9.8 fL (7.9-10.8); MONOCYTES # (AUTO) 0.7 10^3/uL (0.0-1.0); MONOCYTES % (AUTO) 13.9 %; NEUTROPHILS # (AUTO) 3.2 10^3/uL (1.5-6.6); NEUTROPHILS % (AUTO) 68.4 %; PLT - PLATELET COUNT 150 10^3/uL (130-450); RED BLOOD COUNT 3.69 10^6/uL (4.20-5.40); RED CELL DISTRIBUTION WIDTH 16.9 % (12.0-15.0); WHITE BLOOD COUNT 4.7 x10^3/uL (4.8-10.8)
[2023-01-22 16:55] LABS: INR 1.4 (0.8-1.2); PT - PROTHROMBIN TIME 15.1 secs (9.9-12.6)
[2023-01-22 16:57] LABS: ALBUMIN 3.9 g/dL (3.2-5.5)
[2023-01-22 17:01] LABS: CREATININE 8.5 mg/dL (0.6-1.3)
[2023-01-22 17:02] LABS: ALBUMIN/GLOBULIN RATIO 1.1 (1.0-2.2); CALCIUM 8.8 mg/dL (8.5-10.3); TOTAL PROTEIN 7.5 g/dL (6.4-8.9)
--- NOTE | 2023-01-22 20:01 | Ultrasound Report ---
PROCEDURE: Duplex Ext Veins Bilateral INDICATIONS: R AYAH TECHNIQUE: Real-time imaging, as well as color and pulse Doppler interrogation, were performed of the deep veins of both legs from the inguinal ligament to the popliteal fossa. Attempted visualization of the calf veins was performed. COMPARISON: CT abdomen and pelvis dated 08/19/2022 FINDINGS: Study limited by patient's inability for adequate breath-hold and significant soft tissue e geno which limits ability to compress the venous structures. Where possible deep veins are normally compressible, and free of intraluminal thrombus. Color and pu lse Doppler demonstrate normal phasic intravascular flow. There is normal augmentation response to d istal compression maneuver. The venous structures of the lower leg were not well visualized. Prominent calcified right inguinal lymph node is stable compared to CT from 08/19/2022. IMPRESSION: No deep venous thrombosis of the visualized lower extremities. Limited evaluation the right lateral l ower legs. Reviewed by: Jordan Marcano MD on 01/22/2023 7:59 PM PDT Approved by: Jordan Marcano MD on 01/22/2023 7:59 PM PDT Station ID: [id number]
[2023-01-22 20:32] VITALS: BP 109/71; O2SAT 100
== END 2023-01-22 20:24 | disposition home or self-care (01) ==
LOC: ED 15:28
DX: R60.9 Edema, unspecified (principal); I10 Essential (primary) hypertension
CPT/HCPCS: 36415; 80053; 85025; 85610; 93970; 99283; 99284

== ENCOUNTER 2023-01-28 17:29 | Outpatient (CLI) | payer MEDICARE, MEDICAID | END 2023-01-28 23:59 | disposition short-term general hospital (02) | LOC: EMS 17:29 | DX: I95.9 Hypotension, unspecified (principal); Z99.2 Dependence on renal dialysis | CPT/HCPCS: A0425; A0429 ==

== ENCOUNTER 2023-02-15 16:31 | Emergency (ER) | payer MEDICARE, MEDICAID ==
[2023-02-15] MEDS ORDERED: oxyCODONE 5 MG TABLET PO STA (17:00)
--- NOTE | 2023-02-15 17:01 | ED Physician Documentation ---
History of Present Illness - Stated complaint Stated Complaint: BILAT HIP PX - Chief complaint Chief Complaint: Ext Problem - History obtained from History obtained from: Patient - Additonal information Additional information: 57-year-old woman who developed ESRD and is dialyzed Thursday and Thursday because of excessive NSAID use in the past has had 2 months of bilateral hip pain, left worse than right that is atraumatic and would like x-rays. Pain is in the posterior hip/upper gluteal where she points to it. 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 : Dialysis, Other HEENT: None Psych: Depression Musculoskeletal: None Derm: None - Past Surgical History Past Surgical History: Yes /PIPING DESIGN SPECIALIST: Dilation and currettage Cardiovascular: Vascular surgery - Present Medications Home Medications: Ambulatory Orders Medication Instructions Recorded Confirmed Acetaminophen [Aphen] 650 mg PO Q4HR PRN 09/06/20 02/15/23 Sevelamer [Renagel] 2,400 mg PO TID 09/06/20 02/15/23 rOPINIRole [Requip] 0.25 mg PO BID 09/06/20 02/15/23 Gabapentin [Neurontin] 300 mg PO BID #60 cap 01/22/23 02/15/23 Empagliflozin [Jardiance] 10 mg ORAL DAILY 02/15/23 02/15/23 Metoprolol Succinate [Toprol Xl] 50 mg PO DAILY 02/15/23 02/15/23 Midodrine HCl 5 mg PO ONCE 02/15/23 02/15/23 Oxycodone HCl/Acetaminophen 1 - 2 each PO Q6H PRN #14 tablet 02/15/23 [Percocet 5-325 mg Tablet] Sertraline [Zoloft] 25 mg PO DAILY 02/15/23 02/15/23 traMADol [Ultram] 50 mg PO HS 02/15/23 02/15/23 - Allergies Allergies/Adverse Reactions: Allergies Allergy/AdvReac Type Severity Reaction Status Date / Time No Known Drug Allergies Allergy Verified 02/15/23 16:38 - Social History Does the pt smoke?: No Smoking Status: Never smoker Does the pt drink ETOH?: No Does the pt have substance abuse?: No - Immunizations Immunizations are current?: Yes PD ED PE NORMAL - Vitals Vital signs reviewed: Yes - General General: Alert and oriented X 3, No acute distress - Abdomen Abdomen: Normal bowel sounds, Soft, Non tender - Derm Derm: Normal color, Warm and dry - Extremities Extremities: Other (No hip pain with leg raise either side. No significant pain with internal or external rotation of the hips. She does have significant tenderness of right greater than left hip laterally and posteriorly over the buttocks. There is a suggestion of a subcutaneous mass over the right hip.) - Neuro Neuro: Alert and oriented X 3, Normal speech Results - Vitals Vitals: Vital Signs - 24 hr 02/15/23 02/15/23 16:38 18:29 Temperature 36 C L Heart Rate 80 58 L Respiratory 18 20 Rate Blood Pressure 95/49 L 91/54 L O2 Saturation 98 96 Oxygen O2 Source Room air - Rads (name of study) CT pelvis/L spine Relevant Findings:: Final report received, EMP independent interpretation of test PD Medical Decision Making - ED course ED course: 57-year-old woman with ESRD presents with bilateral hip and low back pain. There is a suggestion of a subcutaneous mass on exam but not corroborated on CT imaging but CT imaging was done because of this finding. CT imaging did demonstrate extensive bilateral hip, SI, and L5-S1 facet arthritis. Therefore I believe her pain is multifactorial from these findings and was treated with oxycodone with good effect here. Departure - Departure Disposition: 01 Home, Self Care Clinical Impression: Osteoarthritis of both sacroiliac joints, Bilateral hip joint arthritis, Facet arthritis of lumbar region, ESRD (end stage renal disease) Condition: Good Record reviewed to determine appropriate education?: Yes Instructions: ED Degenerative Joint Disease Prescriptions: Oxycodone HCl/Acetaminophen [Percocet 5-325 mg Tablet] 1 - 2 each PO Q6H PRN #14 tablet PRN Reason: pain Comments: As discussed, I think the pain you are having in the hips and back is a combination of the severe facet arthrosis at L5-S1 as well as significant arthritic changes in both your hips and your sacroiliac joints. Follow-up with your primary care physician for further evaluation and treatment. Also reasonable to see a orthopedist that works with spine as well. The closest would be Dr. Issa Davila in [place], . I sent your prescription electronically to the [facility] in [place]. I am prescribing a short course of narcotic pain medication for you. These are potentially dangerous and addictive medications that should be used carefully. These medications may constipate you. Take an auye-ayl-rfjclgg stool softener (docusate) twice daily with plenty of water while taking these medications. If you go 24 hours without a bowel movement, take mezu-zog-znrjlme miralax, per package instructions. Do not drink or drive while taking these medications. If you received narcotic or sedating medications while in the emergency department, do not drive for 24 hours. Store this medication in a safe, secure place and out of reach of children. It is a violation of federal law to give or sell this medication to another person or to use in a manner other than prescribed. The ED will not refill narcotic prescriptions, including prescriptions lost or stolen. To dispose of unwanted medications: 1. [facility] provides a drop box for medication in pill form only (no liquids) 8:00 am to 4:30 p.m. Thursday-Thursday in the lobby of the [facility], [address] [place] [address]. Empty pills into ziplock bag before disposal. Call [phone] for information. 2.[employer] is a free service available to all [facility] residents. Go to [email or web address]/ Note that many narcotic pain relievers also contain Tylenol/acetaminophen. Please ensure that your total dose of acetaminophen from all sources does not exceed 3 g (3000 mg) per day. Forms: PCP List Discharge Date/Time: 02/15/23 18:30
--- NOTE | 2023-02-15 18:00 | CT Report ---
PROCEDURE: LUMBAR SPINE WO INDICATIONS: Hip and back pain TECHNIQUE: Noncontrast 3 mm thick sections acquired from the T12 level to the sacrum. Sagittal and coronal refo rmats were constructed. For radiation dose reduction, the following was used: automated exposure co ntrol, adjustment of mA and/or kV according to patient size. COMPARISON: CT August 19, 2022 FINDINGS: Image quality: There is suboptimal penetration of the images resulting in decreased quality. Bony str uctures are well identified however there is decreased contrast of the soft tissues Bones: There is normal bony alignment. No acute vertebral body compression fractures. No suspiciou s lytic or blastic bony lesions. Central spinal caliber is of normal overall caliber. No pars defec ts. T12-L1: Normal in appearance. L1-L2: Normal in appearance. L2-L3: Normal in appearance. L3-L4: Normal in appearance. L4-L5: Normal in appearance. L5-S1: Normal in appearance. Severe facet arthrosis Soft tissues: No retroperitoneal masses or hematomas. Visualized aorta is normal in caliber. Atrophic appearing right kidney. The left kidney has a normal morphology with a thin cortical rim wit h tip central cystic appearance incompletely imaged measuring 17.9 cm in craniocaudal dimension simil ar to comparison CT in July. Peripheral calcifications. Granulomatous changes of the spleen. IMPRESSION: 1.No bony spinal canal or foraminal narrowing. 2.Severe facet process at L5-S1. 3.Atrophic appearing bilateral kidneys with left perirenal fluid collection grossly unchanged Reviewed by: Issa Delacruz MD on 02/15/2023 4:59 PM AKST Approved by: Issa Delacruz MD on 02/15/2023 4:59 PM AKST Station ID: [id number]
--- NOTE | 2023-02-15 18:04 | CT Report ---
PROCEDURE: PELVIS WO INDICATIONS: Hip and back pain TECHNIQUE: Noncontrast 3 mm axial sections acquired through the bony pelvis, with coronal and sagittal reformatt ing. For radiation dose reduction, the following was used: automated exposure control, adjustment of mA and/or kV according to patient size. COMPARISON: CT abdomen and pelvis August 19, 2022 FINDINGS: Image quality: Images are degraded by photon starvation.. Bones: No acute fracture or osseous malalignment. Severe facet arthrosis of all 5 S1. Mild bilateral osteoarthritic changes of the sacroiliac joints wi th subchondral sclerosis and cystic changes. Mild osteoarthrosis of the right hip. Moderate osteoarth rosis of the left hip with subchondral cystic changes within the femoral head. Soft tissues: Diffuse anasarca. Cystic changes of the left kidney, unchanged from comparison CT dated July 2022 IMPRESSION: 1.No bony fracture. 2.Osteoarthritic changes of the bilateral hips and sacroiliac joints. 3.Facet arthrosis at L5-S1. Reviewed by: Issa Delacruz MD on 02/15/2023 5:03 PM AK Approved by: Issa Delacruz MD on 02/15/2023 5:03 PM AK Station ID: [id number]
[2023-02-15] MEDS ORDERED: oxyCODONE/ACET 5/325 Prepack 4 PO STA (18:16)
[2023-02-15 18:34] VITALS: BP 91/54; O2SAT 96
== END 2023-02-15 18:30 | disposition home or self-care (01) ==
LOC: ED 16:31
DX: M47.898 Other spondylosis, sacral and sacrococcygeal region (principal); M16.0 Bilateral primary osteoarthritis of hip; M47.816 Spondylosis without myelopathy or radiculopathy, lumbar region; N18.6 End stage renal disease; Z99.2 Dependence on renal dialysis
CPT/HCPCS: 72131; 72192; 99284; A9270

== ENCOUNTER 2023-02-24 11:09 | Outpatient (CLI) | payer MEDICARE, MEDICAID | END 2023-02-24 11:10 | disposition EMS.NT | LOC: EMS 11:09 | DX: Z03.89 Encounter for observation for other suspected diseases and conditions ruled out (principal) ==

== ENCOUNTER 2023-02-25 10:08 | Outpatient (CLI) | payer MEDICARE, MEDICAID | END 2023-02-25 10:09 | disposition short-term general hospital (02) | LOC: EMS 10:08 | DX: E11.649 Type 2 diabetes mellitus with hypoglycemia without coma (principal); R53.1 Weakness; Z99.2 Dependence on renal dialysis | CPT/HCPCS: A0425; A0427; A0888 ==